=== PATIENT | male | born 2000 | race Caucasian/White ===

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

== ENCOUNTER → 2021-05-17 | Outpatient (REF) ==
[~2021-05-17] MED LIST: TR1C15 TP
--- NOTE | 2021-05-17 16:34 | Diagnostic Imaging Report ---
EXAMINATION: Left knee 3 views HISTORY: Left knee. COMPARISON: None available. FINDINGS: The alignment is normal. No fracture is seen. Joint spaces are normal. There is no joint effusion. IMPRESSION: 1. No fracture. Dictated by: Dictated on workstation # [id number]
== END ==
LOC: OCC 16:14
PROVIDERS: ATTEND Family Medicine
DX: M25.562 Pain in left knee (principal)
CPT/HCPCS: 73562